=== PATIENT | male | born 1935 | race Caucasian/White ===

== ENCOUNTER 2018-10-22 19:13 | Inpatient (IN) | payer MEDICARE, OTHER ==
[2018-10-22 20:05] LABS: Hemoglobin 6.9 g/dL (14.0-18.0); Mean Corpuscular HGB CONC 32.5 g/dL (32.0-36.0); Mean Corpuscular Hemoglobin 27.6 pg (27.0-31.0); Mean Corpuscular Volume 85.2 fL (78.0-98.0); Mean Platelet Volume 7.2 fL (7.4-10.4); Platelet Count 539 thou/uL (130-400); Red Blood Cell (RBC) Count 2.51 mill/uL (4.70-6.10); White Blood Cell (WBC) Count 10.4 thou/uL (4.8-10.8)
[2018-10-22 20:08] LABS: INR-International Normal Ratio 1.2; PTT 28.9 SEC (22.9-36.1); Prothrombin Time 15.3 SEC (12.0-14.7)
[2018-10-22 20:17] LABS: #Basophils 0.1 thou/uL (0.0-0.2); #Eosinphils 0.1 thou/uL (0.0-0.7); #Lymphocytes 1.8 thou/uL (1.20-3.40); #Monocytes 0.7 thou/uL (0.11-0.59); #Neutrophils 7.7 thou/uL (1.40-6.50); %Basophils 0.6 % (0.0-1.0); %Eosinophils 0.8 % (0.0-10.0); %Lymphocytes 17.5 % (21.0-51.0); %Neutrophils 74.1 % (42.0-75.0); Platelet Morphology Comment Appears Increased
[2018-10-22 20:23] LABS: ALT (SGPT) 23 U/L (8-55); AST (SGOT) 19 U/L (5-34); Albumin 2.8 g/dL (3.4-4.8); Alkaline Phosphatase 97 U/L (40-150); Anion Gap 9 mmol/L (10-20); BUN (Urea Nitrogen) 26 mg/dL (8.4-25.7); Bilirubin, Total 0.2 mg/dL (0.2-1.2); Calc. Creatinine Clearance 0 mL/min (70-130); Calcium 7.7 mg/dL (7.8-10.44); Carbon Dioxide 25 mmol/L (23-31); Chloride 107 mmol/L (98-107); Estimated GFR-MDRD 63; Globulin 2.5 g/dL (2.4-3.5); Glucose 289 mg/dL (83-110); Potassium 4.1 mmol/L (3.5-5.1); Protein, Total 5.3 g/dL (5.8-8.1); Sodium 137 mmol/L (136-145)
[2018-10-22] MEDS ORDERED: Pantoprazole 40 MG VIAL ONE (20:31)
[2018-10-22] MEDS ORDERED: Pantoprazole 80 MG in Sodium Chloride 0.9% 100 ML IVP SCH (20:45)
[2018-10-22] MEDS ORDERED: cefTRIAXone\\ROCEPHIN 2 GM VIAL ONE (21:03)
[2018-10-23 00:17] VITALS: BMI 25.6
[2018-10-23] MEDS: Sodium Chloride 0.9% 1,000 ML IV SCH ×3 (00:52→20:58)
[2018-10-23 03:46] LABS: Hemoglobin 7.7 g/dL (14.0-18.0)
--- NOTE | 2018-10-23 05:14 | HP ---
DATE OF CONSULTATION: 10/22/2018 REASON FOR CONSULTATION: Melena, anemia. CONSULTING PHYSICIAN: Odell Lou MD HISTORY OF PRESENT ILLNESS: The patient is an 83-year-old male with past medical history of diabetes, coronary artery disease status post myocardial infarction and probable cardiac arrhythmia, status post event monitor placement, presenting with complaints of melena. Per patient, he was admitted to the [facility] approximately 1 week ago with complaints of melena/black colored stool that had been present since June of 2018, after undergoing the cholecystectomy. While in the [place], he was intervened upon with what sounds like an upper endoscopy with treatment of "a gastric ulcer." He was then subsequently monitored in the [facility] for approximately 24 to 48 hours and then discharged to home. He was in good state of health until today at approximately 2 o'clock this afternoon when he again had recurrence of these multiple black colored stools that were semi-solid to liquid in consistency. With the appearance of these black colored stools, it prompted him to seek healthcare assistance at the [facility] ER. While in the ER, he was noted to have a significant anemia when compared to baseline approximately with his most recent CBC seen 2 weeks ago with a hemoglobin of 11, now presenting with a hemoglobin of 6.9. He does endorse increased anorexia that has been present since June of 2018 with an approximate 40 pounds weight loss over the last 3 months as a result. Otherwise, he denies any nausea, vomiting, fevers, chills, hematochezia, hematemesis, dysphagia, odynophagia, or shortness of breath. Of note, the patient is a poor historian and cannot recall multiple pieces of information during this interview. REVIEW OF SYSTEMS: A 10-category review of systems was obtained with all responses negative except for the pertinent positives as listed in HPI. PAST MEDICAL HISTORY: As per HPI. PAST SURGICAL HISTORY: Tonsillectomy, cholecystectomy, appendectomy. FAMILY HISTORY: Denies any GI malignancies. SOCIAL HISTORY: Denies any tobacco, alcohol, or illicit drug use. OUTPATIENT MEDICATIONS: 1. Humulin insulin. 2. Ipratropium/albuterol sulfate. 3. Cefdinir. 4. Aspirin 81 mg daily. 5. Amiodarone 400 mg twice daily. ALLERGIES: NO KNOWN DRUG ALLERGIES. PHYSICAL EXAMINATION: VITAL SIGNS: Temperature unknown, pulse 101, blood pressure 95/47, respiratory rate 18, saturating 98% on room air. GENERAL: The patient is lying in bed, in no acute distress. Alert and oriented x4, albeit hard of hearing. NECK: Supple. No JVD. HEENT: No scleral icterus noted. Normocephalic, atraumatic. CARDIOVASCULAR: Tachycardic rate, but regular rhythm with no discernible murmurs, gallops, or rubs. RESPIRATORY: Some crackles were heard in the left upper lung bedolla that cleared with coughing. Otherwise, diminished air flow auscultated in all lung bedolla (lung sounds were difficult to be heard given the fact the patient was in a supine position for central line placement). ABDOMEN: Hyperactive bowel sounds. Soft, nondistended. Tenderness to palpation in the right upper quadrant and midepigastric regions. EXTREMITIES: No cyanosis, clubbing, or edema. LABORATORY DATA: CBC with a white blood cell count of 10.4, hemoglobin 6.9, hematocrit 21.4, platelets 539. INR 1.2. Chemistry with a sodium of 137, potassium 4.1, chloride 107, CO2 of 25, BUN 26, creatinine 1.12, glucose , AST 19, ALT 23, alkaline phosphatase 97, total bilirubin 0.2, albumin 2.8. IMAGING DATA: CT of the abdomen and pelvis was obtained on October 09, 2018, which showed small left pleural effusion and mild increased markings in the bilateral lower lung bases. Fatty change was noted throughout the liver with cholecystectomy changes also seen. A possible splenic infarct was also noted as well as scattered colonic diverticulosis without evidence of diverticulitis. ASSESSMENT AND PLAN: The patient is an 83-year-old male with past medical history of diabetes, coronary artery disease status post myocardial infarction and probable cardiac arrhythmia now on an event monitor, presenting with melena. Melena: The patient states that he was recently admitted to the [facility] in [place] within the last week for this similar complaint of melena. He was intervened upon with upper endoscopy and treatment of what appears to be a gastric ulcer. Post treatment, the patient was doing well until this afternoon when he again had increased melenic type bowel movements thus prompting him to seek healthcare assistance here at [facility]. While in the ED, he was noted to be hypotensive and tachycardic and has received approximately 250 mL of IV fluids resuscitation, but has not received any blood as of yet. He continues to be hypotensive indicating further resuscitation as needed. At this time, the differential could include esophagitis, peptic ulcer disease (most likely) gastritis, arteriovenous malformation, Dieulafoy lesion and/or gastrointestinal neoplasm (less likely). RECOMMENDATIONS: We would continue to trend H and H and transfuse as necessary to maintain an H and H of 7/21, although in this cardiac patient, the H and H of 8 and 24 may be more prudent. We would continue to monitor clinically for signs of active GI bleeding. Agree with placement of patient on a PPI drip in light of active GI bleeding. We would hold any anticoagulation for the time being. We would continue resuscitative efforts with IV fluid administration and blood infusion. Once that patient is adequately resuscitated, would then consider upper endoscopy for more definitive treatment of bleeding source. Please keep the patient n.p.o. with plans to proceed with EGD in the morning unless the patient continues to not respond to IV fluid/blood infusion. We will continue to follow. Please call with any questions. Job ID: [id number]
[2018-10-23] MEDS: Pantoprazole 80 MG, Admixture Fee 1 EACH in Sodium Chloride 0.9% 100 ML IVP SCH ×2 (07:04→19:10)
[2018-10-23] MEDS ORDERED: PHENYLEPHRINE-NS 100 MCG/ML 10 ML SYRINGE ONE ×2 (08:11→09:01)
[2018-10-23] MEDS ORDERED: Ondansetron PF 4 MG/2 ML Vial ONE (09:01)
[2018-10-23] MEDS ORDERED: Esmolol 100 MG/10 ML VIAL ONE (09:01)
[2018-10-23] MEDS ORDERED: PROPOFOL 200 MG/20 ML VIAL ONE (09:01)
[2018-10-23] MEDS ORDERED: EPINEPHrine 1 MG/10 ML Abboject SYRINGE ONE (09:01)
[2018-10-23] MEDS ORDERED: Lidocaine 1% PF 5 ML VIAL ONE (09:01)
[2018-10-23] MEDS ORDERED: ePHEDrine 50 MG/ML VIAL ONE (09:01)
[2018-10-23] MEDS ORDERED: Metoprolol Tartrate 5 MG/5 ML VIAL ONE (09:17)
[2018-10-23] MEDS ORDERED: Promethazine HCl 25 MG/ML VIAL IM PRN (09:26)
[2018-10-23] MEDS ORDERED: Ondansetron HCl/PF 4 MG/2 ML Vial IVP PRN (09:26)
[2018-10-23] MEDS ORDERED: Promethazine HCl 25 MG/ML VIAL SLOW IVP PRN (09:26)
[2018-10-23] MEDS ORDERED: Amiodarone 200 MG TAB PO SCH (10:45)
[2018-10-23] MEDS ORDERED: Dextrose 50% Abboject 50 ML SYRINGE SLOW IVP PRN (11:17)
[2018-10-23] MEDS ORDERED: Dextrose 5% in Water 1,000 ML IV PRN (11:17)
[2018-10-23] MEDS ORDERED: Digoxin 0.5 MG/2 ML AMP SLOW IVP SCH (12:00)
[2018-10-23] MEDS: Amiodarone 450 MG in Dextrose 5% in Water 250 ML IVPB SCH ×2 (12:14→20:58)
[2018-10-23 12:32] LABS: Hemoglobin 7.4 g/dL (14.0-18.0)
[2018-10-23] MEDS: HumaLOG 300 UNITS/3 ML VIAL SC PRN ×3 (12:32→20:59)
--- NOTE | 2018-10-23 12:49 | CON ---
DATE OF CONSULTATION: 10/23/2018 SERVICE: Pulmonary Medicine. REASON FOR CONSULT: CU patient. HISTORY OF PRESENT ILLNESS: The patient is an 83-year-old white male with past medical history significant for nothing. He is in his usual state of health when he started having melena. He presented to the emergency department. Ultimately, he was scoped overnight. Based on his recollection, an ulcer was identified. Overnight, his hemoglobins have stabilized a little bit. This morning, he went into atrial fibrillation with RVR. His blood pressures were preserved. Otherwise, he has no specific complaints of chest pain, fevers, chills, nausea, vomiting, or shortness of breath. He has been having weakness coming on for a couple of days. PAST MEDICAL HISTORY: 1. Type 2 diabetes mellitus. 2. Coronary artery disease. 3. Gastroesophageal reflux disease. 4. Hypertension. 5. Low vitamin D. PAST SURGICAL HISTORY: 1. Tonsillectomy. 2. Cholecystectomy. 3. Appendectomy. FAMILY HISTORY: Noncontributory. SOCIAL HISTORY: Negative for alcohol, tobacco, or illicit drug use. He has no exposure to chemicals, dust, asbestos, or tuberculosis. He is a [employer]. ALLERGIES: NO KNOWN DRUG ALLERGIES. MEDICATIONS: List of his inpatient medications was reviewed. No specific updates were made. REVIEW OF SYSTEMS: General; head, eyes, ears, nose, and throat; cardiovascular, respiratory, GI, , musculoskeletal, neurologic, and skin are negative, except as mentioned in the HPI. PHYSICAL EXAMINATION: VITAL SIGNS: Afebrile, pulse 117, blood pressure 105/57, respirations 32, saturation 93% on room air. HEENT: Normocephalic and atraumatic. Sclerae white. Conjunctivae pink. Oral mucosa is moist without lesions. LUNGS: Decent air entry. There is no prolonged expiratory phase. I do not appreciate any rhonchi or crackles. CARDIOVASCULAR/HEART: Tachycardic, irregular. ABDOMEN: Soft, nontender, nondistended. Bowel sounds are positive. MUSCULOSKELETAL: No cyanosis or clubbing. No pitting in the bilateral lower extremities. NEUROLOGIC: Grossly nonfocal. LABORATORY DATA: Hemoglobin 7.7, WBC 10.4, platelets 539,000. INR 1.2. Creatinine 1.12. Basic metabolic profile is otherwise unremarkable with a potassium of 4.1. Liver function studies were unremarkable. ASSESSMENT: 1. Acute blood loss anemia, stable. 2. Upper gastrointestinal bleed. 3. Peptic ulcer disease. 4. Atrial fibrillation with rapid ventricular response. DISCUSSION AND PLAN: We will continue to trend the hemoglobin and keep him above 7. I will check a magnesium with tomorrow morning's laboratories, and we will repeat electrolytes. I will give him a dose of digoxin, and we will initiate an amiodarone drip. Cardiology consultation will be placed as so far as the patient is aware, there is a new onset atrial fibrillation. He will remain in the IMCU for today. 70 minutes have been devoted to this patient in various activities. I personally reviewed all imaging studies and laboratory data noted within this document. For fifty percent of this time, I was interacting with the patient at the bedside or coordinating care with the care team. For the remainder of the time I was immediately available to the patient in the hospital unit. Job ID: [id number] MTDD
--- NOTE | 2018-10-23 13:00 | OP ---
DATE OF PROCEDURE: 10/23/2018 PROCEDURE PERFORMED: EGD with control of hemorrhage. INDICATION FOR PROCEDURE: Melena, probable upper GI bleed, per recent history of upper GI ulceration intervened on at the [facility] one week ago. DESCRIPTION OF PROCEDURE: After the risks and benefits of the procedure were explained to the patient including risks of bleeding, infection, perforation, reactions to anesthesia, aspiration and/or pain, informed consent was obtained. The patient was then taken to the endoscopy suite, where deep sedation was administered via propofol and anesthesia support. Once adequate sedation was achieved, the therapeutic gastroscope was introduced into the mouth with intubation of the esophagus, stomach, and the proximal small intestine with the findings listed below. The patient did exhibit increased heart rates during the procedure secondary to epinephrine injection, but otherwise tolerated the procedure well with no immediate perioperative complications. After the procedure, all equipment was removed from the patient, and he was taken to PACU in satisfactory condition. FINDINGS: Esophagus: Normal-appearing mucosa was seen in the proximal, mid, and distal esophagus. There was no evidence of erosions, ulcerations, mass, lesions, or active/recent bleeding. Stomach: A large amount of retained food was seen in the gastric cardia and proximal cardia, proximal fundus and pre-pyloric regions prevented visualization of the gastric mucosa in these regions. Underlying abnormalities cannot be ruled out at this time, in these areas of the stomach, otherwise of the mucosa visualized, there was no evidence of erosions, ulcerations, mass, lesions, or active/recent bleeding seen in the distal fundus, body, greater curvature, and incisura. Duodenum: A 5 to 6 mm clean based ulceration without high-risk stigmata of bleeding was seen in the distal portion of the duodenal bulb. However, just distal to this lesion was a smaller ulceration measuring approximately 3 to 4 mm in size that did exhibit a visible vessel that was actively spurting blood along the proximal end of the ulceration. Epinephrine injection with a concentration of 1:10,000 was then performed in a 4-quadrant fashion using approximately 7 mL to slow the bleeding enough to obtain adequate visualization of the visible vessel. Bipolar cautery was then employed with cauterization of the visible vessel and good hemostasis achieved. At the end of the procedure, there was no active/visible bleeding, otherwise the remainder of the second portion of the duodenum was normal without any other abnormalities. IMPRESSION: 1. A 3 to 4 mm ulceration seen in the duodenal sweep with a visible vessel that was actively spurting blood, now status post epinephrine injection and bipolar cautery with good hemostasis achieved. 2. A 5 to 6 mm clean based ulceration seen in the distal duodenal bulb without any high-risk stigmata of bleeding. 3. A large amount of retained food within the stomach precluding visualization of the gastric cardia, proximal fundus and pre-pyloric regions, abnormalities cannot be ruled out at this time in these regions. RECOMMENDATIONS: 1. We continue to trend H and H and transfuse as necessary to maintain an H and H of 02/12. 2. Continue to monitor clinically for signs of active gastrointestinal bleeding. 3. We will continue patient on a PPI drip for the next 24 hours, then consider transferring the patient to PPI 40 mg twice daily. 4. We will place the patient on a clear liquid diet for now. However, if the patient continues to exhibit decreasing H and H during this admission, I would strongly consider repeat upper endoscopy for further evaluation and treatment of the regions not visualized during examination today. 5. Would avoid any NSAIDs and/or anticoagulation for at least the next 48 to 72 hours. 6. The patient will need to be monitored in at least an intermediate care bed for at least the next 48 hours given the increased risk of rebleeding during this time. We will continue to follow. Please call with any questions. Job ID: [id number]
--- NOTE | 2018-10-23 14:38 | CON ---
DATE OF CONSULTATION: 10/23/2018 REASON FOR CONSULTATION: Atrial fibrillation with RVR. HISTORY OF PRESENT ILLNESS: Mr. Humphrey is an 83-year-old white gentleman, who comes to the hospital for melena. He was found to have GI bleed. His hemoglobin went from 11, which is baseline down to 6.9. He underwent endoscopy earlier today and was found to have a bleeding ulcer in his duodenum that was cauterized and injected with epinephrine. This was not clipped. Actively bleeding spurting blood at the time of evaluation. He came back, he is wide awake and he suddenly went into atrial fibrillation with RVR, so Cardiology consulted for this. He does have a history of paroxysmal atrial fibrillation. He follows up with [facility]. He is last seen here by Dr. Kim during an admission for what appears to be sepsis, at which time he went to atrial fibrillation as well. He apparently at that time was on warfarin for stroke prophylaxis. Looking at his medication list, he has been and what appears to be Plavix and aspirin. He has not had a stent as far as I can tell, and he is unable to tell me. He had an admission to the [place] just about a month ago for the same issue with melena. He had an endoscopy and apparently, he was treated for a gastric ulcer at that time, unclear as to the details of that admission. Currently, he is hard to give any history and he really does not know much about what has been going on in the recent past . PAST MEDICAL HISTORY: 1. Paroxysmal atrial fibrillation. 2. Gastric ulcers and duodenal ulcers with bleeding. 3. Type 2 diabetes. 4. Coronary artery disease. 5. GERD. 6. Hypertension. 7. Vitamin D deficiency. PAST SURGICAL HISTORY: 1. Tonsillectomy. 2. Cholecystectomy. 3. Appendectomy. 4. Esophagogastroduodenoscopy and colonoscopy today. SOCIAL HISTORY: No alcohol, tobacco, or drugs. FAMILY HISTORY: Noncontributory. OUTPATIENT MEDICATIONS: Per chart review: 1. Tylenol p.r.n. 2. Menthol. 3. Metoprolol succinate 100 mg a day. 4. Vitamin D3. 5. Pantoprazole 40 mg b.i.d. 6. Lisinopril 2.5 mg a day. 7. Colchicine. 8. Clopidogrel 75 mg a day. 9. Aspirin 81 a day. ALLERGIES: NO KNOWN DRUG ALLERGIES. REVIEW OF SYSTEMS: A 12-point review of systems was done and was found to be negative unless stated in the history of present illness. PHYSICAL EXAMINATION: VITAL SIGNS: Temperature 98.4, pulse between 90 to 131, respiratory rate 20, saturating 100% on 2 L, and blood pressure 163/85 down to 119/62. GENERAL: Awake, alert, and oriented to person only, minimally verbal, difficult to get any history from or converse with him. HEENT: Normocephalic and atraumatic. NECK: Supple. LUNGS: Clear. CARDIOVASCULAR: Heart rate in the 120s. ABDOMEN: Soft. Positive bowel sounds. EXTREMITIES: Trace edema. SKIN: Warm and dry. LABORATORY DATA: Laboratory work was reviewed. CBC; hemoglobin down to 6.9, up to 7.4, now. Coags were reviewed. Chemistries were reviewed. Albumin of 2.8, normal sodium and potassium. EKG was reviewed. Telemetry was reviewed. ASSESSMENT: 1. Atrial fibrillation with rapid ventricular response, likely one of his paroxysms of atrial fibrillation. He has a history of paroxysmal atrial fibrillation. I agree with amiodarone drip for now. 2. Upper gastrointestinal bleed. 3. History of coronary artery disease, unclear if he has had stents or not. PLAN: 1. Not a candidate for any anticoagulation for atrial fibrillation at this time, and he may benefit from Watchman versus LARIAT device in the future. Currently off any anticoagulants or any antiplatelets given his high risk for recurrence of bleed with his actively blood spurting artery that was seen on endoscopy today. 2. Continue amiodarone drip mostly for rate control, but I am sure he will convert pretty soon as he does have only paroxysmal atrial fibrillation. 3. We will try to get records from the [place]. 4. Echocardiogram to be done. 5. We will follow. Job ID: [id number]
[2018-10-23] MEDS: Metoprolol Tartrate 25 MG TAB PO SCH (20:59)
[2018-10-24 04:54] LABS: Anion Gap 11 mmol/L (10-20); BUN (Urea Nitrogen) 20 mg/dL (8.4-25.7); Calc. Creatinine Clearance 68 mL/min (70-130); Calcium 7.1 mg/dL (7.8-10.44); Carbon Dioxide 17 mmol/L (23-31); Chloride 113 mmol/L (98-107); Estimated GFR-MDRD 81; Glucose 165 mg/dL (83-110); Magnesium 1.3 mg/dL (1.6-2.6); Potassium 4.4 mmol/L (3.5-5.1); Sodium 137 mmol/L (136-145)
[2018-10-24] MEDS: Pantoprazole 80 MG, Admixture Fee 1 EACH in Sodium Chloride 0.9% 100 ML IVP SCH ×2 (05:35→16:24)
[2018-10-24] MEDS: Sodium Chloride 0.9% 1,000 ML IV SCH ×2 (05:35→16:26)
[2018-10-24] MEDS: HumaLOG 300 UNITS/3 ML VIAL SC PRN (05:48)
[2018-10-24 06:03] LABS: Hemoglobin 5.8 g/dL (14.0-18.0); Mean Corpuscular HGB CONC 34.7 g/dL (32.0-36.0); Mean Corpuscular Hemoglobin 29.7 pg (27.0-31.0); Mean Corpuscular Volume 85.6 fL (78.0-98.0); Mean Platelet Volume 7.6 fL (7.4-10.4); Platelet Count 272 thou/uL (130-400); RBC Distribution Width 15.3 % (11.5-14.5); Red Blood Cell (RBC) Count 1.96 mill/uL (4.70-6.10); White Blood Cell (WBC) Count 20.1 thou/uL (4.8-10.8)
[2018-10-24 06:45] LABS: Band 3 % (5-11); Eosinophils 2 % (0-10); Lymphocytes 13 % (21-51); MDiff Complete? YES; Monocytes 3 % (0-10); Neutrophil 79 % (42-75); Polychromasia SLIGHT = 2-3 cells (100X) (0-2/hpf)
[2018-10-24] MEDS ORDERED: Digoxin 0.5 MG/2 ML AMP SLOW IVP SCH (09:00)
[2018-10-24] MEDS: Metoprolol Tartrate 25 MG TAB PO SCH ×2 (09:18→21:02)
--- NOTE | 2018-10-24 13:35 | RAD ---
PORTABLE CHEST 1 VIEW: Date: 10/24/18 Time: 1253 hours HISTORY: Asthma. CHF. FINDINGS/IMPRESSION: Comparison made with exam of 10/09/18. Borderline cardiomegaly is again seen. There is pulmonary vascular congestion with bibasilar infiltra guero. No pneumothoraces or large effusions are seen. There are degenerative changes in the right shoul ibeth joint. POS: TPC
--- NOTE | 2018-10-24 13:37 | PRG ---
DATE OF SERVICE: 10/24/2018 REASON FOR CONSULTATION: Melena, duodenal ulceration. SUBJECTIVE: Per nursing staff, the patient had 2 melenic/reddish-colored stools overnight with a slight decrease in his blood pressure during that time, but stabilized with no further bowel movements after that. This morning, he did have another episode of melenic/reddish-colored bowel movements, but otherwise has been doing well. Currently, he denies any nausea, vomiting, fevers, chills, abdominal pain, or hematemesis. OBJECTIVE: VITAL SIGNS: Temperature 98.5, pulse 100, blood pressure 123/58, respiratory rate 22, and saturating 96% on room air. GENERAL: The patient was lying in bed, in no acute distress. Alert and oriented x4. CARDIOVASCULAR: Tachycardic rate, but regular rhythm. RESPIRATORY: Clear to auscultation bilaterally. ABDOMEN: Normoactive bowel sounds. Soft, nontender, and nondistended. EXTREMITIES: No cyanosis, clubbing, or edema. LABORATORY DATA: CBC with a white blood cell count of 20.1, hemoglobin 5.8, hematocrit 16.8, and platelets 272. Chemistry with a sodium of 137, potassium 4.4, chloride 113, CO2 of 17, BUN 20, creatinine 0.9, and glucose 165. IMAGING DATA: The patient underwent an EGD on October 23, 2018, which showed a small ulceration at the duodenal sweep as well as the presence of a visible vessel that was actively spurting arterial blood. This was intervened upon with epinephrine and bipolar cauterization and after multiple attempts, good hemostasis was able to be achieved. ASSESSMENT AND PLAN: The patient is an 83-year-old male with past medical history of diabetes, coronary artery disease, status post myocardial infarction and cardiac arrhythmia, now on amiodarone drip, presenting with melena. Melena: The patient was recently admitted to the [facility] in [place] with complaints of melena and was ultimately intervened upon with upper endoscopy and treatment of what seems to have been a gastric ulceration. In the post treatment period, the patient was doing well until the day prior to admission when he began to experience increased melenic-type bowel movements that was associated with increased weakness that prompted him to seek healthcare assistance. While in the ED, he was noted to be hypotensive and tachycardic with a decreased H and H consistent with an active gastrointestinal bleed. He subsequently underwent esophagogastroduodenoscopy on October 23, 2018, which showed an actively bleeding duodenal ulceration with a visible vessel that was successfully intervened upon with epinephrine and bipolar cauterization. However, he continues to have melenic stools overnight and did have a drop in his H and H concerning for continued bleeding despite intervention. RECOMMENDATIONS: 1. We would continue to trend H and H and transfuse as necessary to maintain an H and H of 7/21. 2. We will continue to monitor clinically for signs of active GI bleeding. 3. Make the patient n.p.o. with infusion of PRBCs (already being done). 4. If the patient continues to have melena or decreasing H and H, we then repeat the upper endoscopy for further evaluation. Please call with any questions. Job ID: [id number]
[2018-10-24 14:12] LABS: Hemoglobin 8.3 g/dL (14.0-18.0); Platelet Count 262 thou/uL (130-400)
[2018-10-24] MEDS: Amiodarone 450 MG in Dextrose 5% in Water 250 ML IVPB SCH (14:31)
--- NOTE | 2018-10-24 16:20 | PRG ---
DATE OF SERVICE: 10/24/2018 SUBJECTIVE: Mr. Humphrey'fantasma events been reviewed. He is in no distress. He denies passing any blood. OBJECTIVE: VITAL SIGNS: On exam, he is afebrile, heart rate is 102, blood pressure 128/64, and respiratory rates in the 20s. CHEST: On chest exam, he has wheezing. HEART: Regular rhythm. ABDOMEN: Soft and nontender. EXTREMITIES: Without edema. LABORATORY DATA: Chest x-ray ordered after I evaluated him, it is suggestive of pulmonary edema. IMPRESSION AND PLAN: 1. Atrial fibrillation. 2. Cardiogenic pulmonary edema. 3. Gastrointestinal blood loss. 4. History of coronary artery disease. An echocardiogram was ordered yesterday, had not been reported yet. He may benefit from nebulizer treatments. He denies having chronic obstructive pulmonary disease or asthma. I suspect this is predominantly cardiac asthma. Job ID: [id number]
[2018-10-25] MEDS: Sodium Chloride 0.9% 1,000 ML IV SCH ×2 (01:53→14:03)
[2018-10-25 04:01] LABS: #Basophils 0.1 thou/uL (0.0-0.2); #Eosinphils 0.4 thou/uL (0.0-0.7); #Lymphocytes 1.9 thou/uL (1.20-3.40); #Neutrophils 12.1 thou/uL (1.40-6.50); %Basophils 0.4 % (0.0-1.0); %Eosinophils 2.4 % (0.0-10.0); %Lymphocytes 12.5 % (21.0-51.0); %Monocytes 6.5 % (0.0-10.0); %Neutrophils 78.3 % (42.0-75.0); Hemoglobin 8.2 g/dL (14.0-18.0); Mean Corpuscular HGB CONC 34.2 g/dL (32.0-36.0); Mean Corpuscular Hemoglobin 30.3 pg (27.0-31.0); Mean Corpuscular Volume 88.5 fL (78.0-98.0); Mean Platelet Volume 7.2 fL (7.4-10.4); Platelet Count 272 thou/uL (130-400); RBC Distribution Width 15.1 % (11.5-14.5); Red Blood Cell (RBC) Count 2.71 mill/uL (4.70-6.10); White Blood Cell (WBC) Count 15.4 thou/uL (4.8-10.8)
[2018-10-25 04:10] LABS: Anion Gap 11 mmol/L (10-20); BUN (Urea Nitrogen) 12 mg/dL (8.4-25.7); Calc. Creatinine Clearance 70 mL/min (70-130); Calcium 7.7 mg/dL (7.8-10.44); Carbon Dioxide 21 mmol/L (23-31); Cardiac Risk 3.2 (Less than 4.5); Chloride 110 mmol/L (98-107); Cholesterol 87 mg/dl (< 200 Desired); Estimated GFR-MDRD 81; Glucose 187 mg/dL (83-110); HDL Cholesterol 27 mg/dL (>60 Neg Risk); LDL Cholesterol, Calculated 38 mg/dL; Magnesium 1.2 mg/dL (1.6-2.6); Potassium 3.8 mmol/L (3.5-5.1); Sodium 138 mmol/L (136-145); Triglycerides 111 mg/dL (Less than 150)
[2018-10-25 05:22] LABS: Digoxin 0.42 ng/mL (0.8-2.0)
[2018-10-25] MEDS: Pantoprazole 80 MG, Admixture Fee 1 EACH in Sodium Chloride 0.9% 100 ML IVP SCH ×2 (05:25→14:03)
[2018-10-25] MEDS: Amiodarone 450 MG in Dextrose 5% in Water 250 ML IVPB SCH (06:28)
[2018-10-25] MEDS: Amiodarone 200 MG TAB PO SCH ×2 (09:26→20:37)
[2018-10-25] MEDS: Metoprolol Tartrate 25 MG TAB PO SCH ×2 (09:27→20:38)
[2018-10-25 15:33] LABS: Hemoglobin 8.2 g/dL (14.0-18.0)
--- NOTE | 2018-10-25 16:40 | PRG ---
DATE OF SERVICE: 10/25/2018 SUBJECTIVE: Mr. Humphrey is clinically unchanged. OBJECTIVE: VITAL SIGNS: He is afebrile, heart rate 90, blood pressure 139/71, and respiratory rate 20. GENERAL: He was more short of breath this morning, but once he received the nebulized treatment, he felt much better. LUNGS: Distant, clear. HEART: Regular rhythm. ABDOMEN: Soft. LABORATORY DATA: White count 15.4, hemoglobin 8.2, and platelets 372. Sodium 138, potassium 3.8, chloride 110, bicarb 21, BUN 12, creatinine 0.9, and glucose 187. IMPRESSION: 1. Chronic obstructive pulmonary disease ?/cardiac asthma. 2. Gastrointestinal blood loss. 3. Congestive heart failure clinically and radiographically on this admission. 4. Diabetes. 5. Atrial fibrillation. 6. Deconditioning. 7. Status post endoscopy this admission showing ulcers in duodenal sweep and ulcer in the distal duodenal bulb and a large amount of retained fluid in the stomach. With his diabetes, I would wonder about gastroparesis. In any event, he appears to be clinically stable at this point. He is extremely weak. Job ID: [id number]
[2018-10-25] MEDS: HumaLOG 300 UNITS/3 ML VIAL SC PRN (17:51)
--- NOTE | 2018-10-25 18:41 | PRG ---
DATE OF SERVICE: 10/25/2018 REASON FOR CONSULTATION: Melena, duodenal ulceration. SUBJECTIVE: Today, the patient had approximately 2 bowel movements, that were considered either bright red blood per rectum versus slightly darker in coloration, concerning for possible recurrence of GI bleeding. Repeat H and H at that time was exactly the same as it was 12 hours prior. Currently, the patient is doing well with no apparent complaints or problems. Currently, he denies any nausea, vomiting, fevers, chills, abdominal pain or hematemesis. OBJECTIVE: VITAL SIGNS: Temperature 98.8, pulse 98, blood pressure 132/76, respiratory rate 26, and saturating 98% on room air. GENERAL: The patient was lying in bed, in no acute distress. Alert and oriented x4. CARDIOVASCULAR: Tachycardic rate, but regular rhythm. RESPIRATORY: Clear to auscultation bilaterally. ABDOMEN: Normoactive bowel sounds. Soft, nontender, and nondistended. EXTREMITIES: No cyanosis, clubbing or edema. LABORATORY DATA: CBC with a white blood cell count of 15.4, hemoglobin 8.2, hematocrit 24, and platelets 272. Chemistry with a sodium of 138, potassium 3.8, chloride 110, CO2 of 21, BUN 12, creatinine 0.9, and glucose 187. IMAGING DATA: No current GI imaging is available for review. ASSESSMENT AND PLAN: The patient is an 83-year-old male with past medical history of diabetes, coronary artery disease, status post myocardial infarction, and cardiac arrhythmia, now on amiodarone drip, presenting with melena. Melena: The patient was recently admitted to the [facility] in [place] with complaints of melena and ultimately intervened upon with upper endoscopy and treatment of what sounds like a gastric ulceration. He was ultimately discharged to home, and approximately 3 to 4 days after he was discharged, he began having increased melenic-type bowel movements concerning for upper GI bleed. On admission to the ER here at [facility], he was noted to be hypotensive and tachycardic with a decreased H and H consistent with an active GI bleed. He subsequently underwent an EGD on October 23, 2018, which showed an actively bleeding duodenal ulceration with a visible vessel that was successfully intervened upon with epinephrine and bipolar cauterization. However, since intervention, he has had intermittent episodes of hematochezia versus darker-colored stools concerning for a repeat or recurrence of his upper GI bleed, although his H and H has remained stable over the last 12 to 24 hours. RECOMMENDATIONS: 1. We would continue to trend H and H and transfuse as necessary to maintain an H and H of 02/12. 2. Continue to monitor clinically for signs of active GI bleeding. 3. Can continue the patient on a clear liquid diet. I am not ready to advance his diet given the repeat episodes of these melena and need for possible urgent intervention. 4. If the patient continues to have melena or decreasing H and H, then I would recommend a repeat upper endoscopy for further evaluation. We will continue to follow. Please call with any questions. Job ID: [id number]
--- NOTE | 2018-10-25 21:03 | EKG ---
Test Reason : Blood Pressure : / mmHG Vent. Rate : 104 BPM Atrial Rate : 104 BPM P-R Int : 182 ms QRS Dur : 138 ms QT Int : 388 ms P-R-T Axes : 068 033 090 degrees QTc Int : 510 ms Sinus tachycardia with occasional Premature ventricular complexes Left bundle branch block Abnormal ECG When compared with ECG of 22-JUL-2016 11:37, Premature ventricular complexes are now Present Premature atrial complexes are no longer Present Confirmed by FRANK MENDEZ, STana ([id number]) on 10/25/2018 9:03:15 PM Referred By: RICHARD Confirmed By:DR. Favio MARIE MD
[2018-10-26] MEDS: Sodium Chloride 0.9% 1,000 ML IV SCH ×2 (01:08→15:26)
[2018-10-26] MEDS: Pantoprazole 80 MG, Admixture Fee 1 EACH in Sodium Chloride 0.9% 100 ML IVP SCH ×3 (01:08→21:06)
[2018-10-26 04:47] LABS: #Basophils 0.1 thou/uL (0.0-0.2); #Eosinphils 0.3 thou/uL (0.0-0.7); #Lymphocytes 2.1 thou/uL (1.20-3.40); #Neutrophils 7.9 thou/uL (1.40-6.50); %Basophils 0.7 % (0.0-1.0); %Eosinophils 2.5 % (0.0-10.0); %Lymphocytes 18.4 % (21.0-51.0); %Monocytes 8.6 % (0.0-10.0); %Neutrophils 69.8 % (42.0-75.0); Hemoglobin 8.7 g/dL (14.0-18.0); Mean Corpuscular HGB CONC 34.2 g/dL (32.0-36.0); Mean Corpuscular Hemoglobin 30.8 pg (27.0-31.0); Mean Corpuscular Volume 90.3 fL (78.0-98.0); Mean Platelet Volume 7.5 fL (7.4-10.4); Platelet Count 307 thou/uL (130-400); Red Blood Cell (RBC) Count 2.83 mill/uL (4.70-6.10); White Blood Cell (WBC) Count 11.4 thou/uL (4.8-10.8)
[2018-10-26 05:06] LABS: Anion Gap 10 mmol/L (10-20); BUN (Urea Nitrogen) 9 mg/dL (8.4-25.7); Calc. Creatinine Clearance 71 mL/min (70-130); Carbon Dioxide 23 mmol/L (23-31); Chloride 109 mmol/L (98-107); Estimated GFR-MDRD 83; Glucose 165 mg/dL (83-110); Magnesium 1.6 mg/dL (1.6-2.6); Potassium 3.7 mmol/L (3.5-5.1); Sodium 138 mmol/L (136-145)
[2018-10-26] MEDS: HumaLOG 300 UNITS/3 ML VIAL SC PRN ×2 (06:01→19:02)
[2018-10-26] MEDS: Amiodarone 200 MG TAB PO SCH ×2 (09:34→21:06)
--- NOTE | 2018-10-26 19:24 | PRG ---
DATE OF SERVICE: 10/26/2018 REASON FOR CONSULTATION: Melena, duodenal ulceration. SUBJECTIVE: The patient states that he did not have a bowel movement today consistent with further active GI bleeding. Currently, he is lying in bed with no acute events or problems overnight. He currently denies any nausea, vomiting, fevers, chills, abdominal pain, or hematemesis or melena. OBJECTIVE: VITAL SIGNS: Temperature 98.3, pulse 94, blood pressure 150/82, respiratory rate 18, saturating 97% on room air. GENERAL: The patient is lying in bed, in no acute distress. Alert and oriented x3. CARDIOVASCULAR: Regular rate and rhythm. RESPIRATORY: Clear to auscultation bilaterally. ABDOMEN: Normoactive bowel sounds. Soft, nontender, nondistended. EXTREMITIES: No cyanosis, clubbing, or edema. LABORATORY DATA: CBC showed a white blood cell count of 11.4, hemoglobin 8.7, hematocrit 25.5, platelets 307. Chemistry with a sodium of 138, potassium 3.7, chloride 109, CO2 of 23, BUN 9, creatinine 0.88, glucose 165. IMAGING DATA: No current GI imaging is available for review. ASSESSMENT AND PLAN: The patient is an 83-year-old male with past medical history of diabetes, coronary artery disease status post myocardial infarction and cardiac arrhythmia, now placed on amiodarone, presenting with melena secondary to an actively bleeding duodenal ulcer. Melena/duodenal ulcer. Per patient, he was recently admitted to the [facility] in [place] with complaints of melena and ultimately intervened upon with upper endoscopy and treatment of what sounded like a gastric ulceration. He was ultimately discharged to home. Approximately 3 to 4 days after he was discharged, began having increased melenic type bowel movements, again concerning for an upper GI bleed. On admission, he was noted to have a significantly decreased H and H and was also hypotensive and tachycardic concerning for a briskly bleeding GI bleed. He subsequently underwent EGD on 10/23/2018, which showed an actively bleeding duodenal ulceration with a visible vessel that was successfully intervened upon with epinephrine and bipolar cautery. Since intervention, he had been having intermittent episodes of hematochezia/melenic type stools concerning for recurrence of his upper GI bleed. However, over the last 24 to 48 hours, his H and H has remained fairly stable and he has had no further episodes of melenic type stools lending further credence towards the notion that the GI bleeding has stopped. RECOMMENDATIONS: 1. We will continue to trend H and H and transfuse as necessary to maintain an H and H of 02/12. 2. Continue to monitor clinically for signs of active GI bleeding. 3. I would advance the diet for this particular patient given the fact that he has not had any more melena within the last 24 hours and his H and H is stable. 4. We will continue PPI 40 mg b.i.d. 5. If the patient continues to have melena or decreasing H and H, then I would repeat an upper endoscopy for further evaluation. If the patient's H and H are normal tomorrow and if cleared from a cardiology standpoint, he could be ultimately discharged to home with followup at the [facility]. We will continue to follow, please call with any questions. Job ID: [id number]
--- NOTE | 2018-10-26 19:50 | PRG ---
DATE OF SERVICE: 10/26/2018 SUBJECTIVE: Yobany Humphrey had no complaints today. OBJECTIVE: VITAL SIGNS: He is afebrile, heart rate is 94, respiratory rate is 18, oximetry is 97% on room air, blood pressure 150/82. LUNGS: Clear. HEART: Irregular rhythm. ABDOMEN: Soft. EXTREMITIES: Without edema. LABORATORY DATA: White count 11.4, hemoglobin 8.7, platelets 307,000. Sodium 138, potassium 3.7, chloride 109, bicarb 23, BUN 9, and creatinine 0.88. IMPRESSION: 1. Cardiac asthma versus some component of chronic obstructive pulmonary disease. 2. Gastrointestinal blood loss. 3. Congestive heart failure clinically and radiographically. 4. Diabetes. 5. Atrial fibrillation. 6. Deconditioning. 7. Ulcer disease by endoscopy this admission, does not appear to be acutely bleeding. We will continue to follow. Job ID: [id number]
[2018-10-27] MEDS: Sodium Chloride 0.9% 1,000 ML IV SCH (00:50)
[2018-10-27] MEDS: Pantoprazole 80 MG, Admixture Fee 1 EACH in Sodium Chloride 0.9% 100 ML IVP SCH (06:45)
[2018-10-27 07:02] LABS: #Basophils 0.1 thou/uL (0.0-0.2); #Eosinphils 0.2 thou/uL (0.0-0.7); #Lymphocytes 1.7 thou/uL (1.20-3.40); #Monocytes 0.8 thou/uL (0.11-0.59); #Neutrophils 6.8 thou/uL (1.40-6.50); %Basophils 0.9 % (0.0-1.0); %Eosinophils 1.7 % (0.0-10.0); %Lymphocytes 17.6 % (21.0-51.0); %Monocytes 8.3 % (0.0-10.0); %Neutrophils 71.6 % (42.0-75.0); Hemoglobin 8.8 g/dL (14.0-18.0); Mean Corpuscular HGB CONC 32.9 g/dL (32.0-36.0); Mean Corpuscular Hemoglobin 31.3 pg (27.0-31.0); Mean Corpuscular Volume 95.2 fL (78.0-98.0); Mean Platelet Volume 7.6 fL (7.4-10.4); Platelet Count 317 thou/uL (130-400); RBC Distribution Width 17.9 % (11.5-14.5); Red Blood Cell (RBC) Count 2.83 mill/uL (4.70-6.10); White Blood Cell (WBC) Count 9.5 thou/uL (4.8-10.8)
[2018-10-27 07:20] LABS: Anion Gap 14 mmol/L (10-20); BUN (Urea Nitrogen) 12 mg/dL (8.4-25.7); Calc. Creatinine Clearance 75 mL/min (70-130); Carbon Dioxide 19 mmol/L (23-31); Chloride 109 mmol/L (98-107); Estimated GFR-MDRD 86; Glucose 149 mg/dL (83-110); Magnesium 1.6 mg/dL (1.6-2.6); Potassium 3.8 mmol/L (3.5-5.1); Sodium 138 mmol/L (136-145)
[2018-10-27] MEDS ORDERED: Lisinopril 2.5 MG TAB PO SCH (09:00)
--- NOTE | 2018-10-27 10:00 | PRG ---
DATE OF SERVICE: 10/27/2018 SUBJECTIVE: Mr. Humphrey is afebrile. OBJECTIVE: VITAL SIGNS: Heart rate 92, respiratory rate 18, oximetry is 99 on room air, and blood pressure 158/86. LUNGS: Clear. HEART: Regular rhythm. ABDOMEN: Soft. LABORATORY DATA: White count 9.5, hemoglobin 8.8, and platelets 317. Sodium 138, potassium 3.8, chloride 109, bicarb 19, BUN 12, creatinine 0.85, and anion gap is 10. IMPRESSION AND PLAN: 1. Cardiac asthma versus chronic obstructive pulmonary disease, clinically stable. 2. Gastrointestinal blood loss, hemoglobin is stable. 3. Congestive heart failure. 4. Diabetes. 5. Atrial fibrillation. 6. Deconditioning. 7. Ulcer disease without active bleeding at this time. We will continue to follow. Job ID: [id number]
[2018-10-27] MEDS: Amiodarone 200 MG TAB PO SCH (10:19)
[2018-10-27 18:42] VITALS: BP 142/82; TEMP 96.8
== END 2018-10-27 15:20 | DRG 378 ==
LOC: ERS 19:13 → IMCU/EMU 20:23 → 2NO 10-26 07:54
PROVIDERS: ADMIT Internal Medicine; ATTEND Internal Medicine
PROC: 0W3P8ZZ Control Bleeding in Gastrointestinal Tract, Via Natural or Artificial Opening Endoscopic (ICD-10-PCS; principal; 2018-10-23)
DX: K26.4 Chronic or unspecified duodenal ulcer with hemorrhage (principal); D62 Acute posthemorrhagic anemia; E11.9 Type 2 diabetes mellitus without complications; E78.5 Hyperlipidemia, unspecified; M54.5 Low back pain; I25.10 Atherosclerotic heart disease of native coronary artery without angina pectoris; R63.0 Anorexia; K21.9 Gastro-esophageal reflux disease without esophagitis; I48.0 Paroxysmal atrial fibrillation; E55.9 Vitamin D deficiency, unspecified; I50.9 Heart failure, unspecified; I11.0 Hypertensive heart disease with heart failure; Z68.26 Body mass index [BMI] 26.0-26.9, adult; I25.2 Old myocardial infarction; J44.9 Chronic obstructive pulmonary disease, unspecified; Z90.49 Acquired absence of other specified parts of digestive tract; Z79.4 Long term (current) use of insulin; Z79.82 Long term (current) use of aspirin; Z79.899 Other long term (current) drug therapy; Z79.02 Long term (current) use of antithrombotics/antiplatelets
CPT/HCPCS: 36415; 36416; 36430; 36556; 71045; 80048; 80053; 80061; 80162; 82274; 83735; 85025; 85610; 85730; 86850; 86900; 86901; 93005; 93010; 94640; 96361; 96365; 96366; 96367; 96374; C9113; J0171; J0696; J1160; J2001; J2405; J2704; J3490; J7050; J7070; J7620; P9016

== ENCOUNTER 2019-01-22 09:57 | Emergency (ER) | payer MEDICARE, OTHER ==
[2019-01-22 12:05] LABS: CKMB 2.6 ng/mL (0-6.6)
== END 2019-01-22 15:25 | disposition short-term general hospital (02) ==
LOC: ERS 09:57
DX: I11.0 Hypertensive heart disease with heart failure (principal); I50.9 Heart failure, unspecified; R79.89 Other specified abnormal findings of blood chemistry
CPT/HCPCS: 36415; 82553; 93005

== ENCOUNTER 2019-06-27 10:16 | Emergency (ER) | payer OTHER ==
[2019-06-27 10:49] LABS: #Basophils 0.1 thou/uL (0.0-0.2); #Eosinphils 0.2 thou/uL (0.0-0.7); #Lymphocytes 2.1 thou/uL (1.20-3.40); #Monocytes 0.7 thou/uL (0.11-0.59); %Basophils 0.8 % (0.0-1.0); %Eosinophils 2.4 % (0.0-10.0); %Lymphocytes 25.9 % (21.0-51.0); %Monocytes 8.1 % (0.0-10.0); %Neutrophils 62.8 % (42.0-75.0); Hemoglobin 13.2 g/dL (14.0-18.0); Mean Corpuscular Hemoglobin 29.4 pg (27.0-31.0); Mean Platelet Volume 7.9 fL (7.4-10.4); Platelet Count 476 thou/uL (130-400); RBC Distribution Width 13.5 % (11.5-14.5); Red Blood Cell (RBC) Count 4.49 mill/uL (4.70-6.10)
--- NOTE | 2019-06-27 10:57 | RAD ---
EXAM: Single view of the chest HISTORY: Chest pain COMPARISON: 01/22/2019 FINDINGS: Single view of the chest shows an enlarged but stable cardiomediastinal silhouette. Increa sed interstitial markings are present. There is no evidence of consolidation, mass, or pleural effusion. The bones are unremarkable. IMPRESSION: No evidence of acute cardiopulmonary disease
[2019-06-27 11:03] LABS: INR-International Normal Ratio 1.4; PTT 39.1 SEC (22.9-36.1); Prothrombin Time 17.4 SEC (12.0-14.7)
[2019-06-27 11:19] LABS: ALT (SGPT) 13 U/L (8-55); AST (SGOT) 21 U/L (5-34); Albumin 3.8 g/dL (3.4-4.8); Alkaline Phosphatase 136 U/L (40-110); Anion Gap 16 mmol/L (10-20); BUN (Urea Nitrogen) 15 mg/dL (8.4-25.7); Bilirubin, Total 0.6 mg/dL (0.2-1.2); Calc. Creatinine Clearance 0 mL/min (70-130); Calcium 9.3 mg/dL (7.8-10.44); Carbon Dioxide 25 mmol/L (23-31); Chloride 103 mmol/L (98-107); Estimated GFR-MDRD 48; Globulin 4.1 g/dL (2.4-3.5); Glucose 127 mg/dL (83-110); Potassium 4.4 mmol/L (3.5-5.1); Protein, Total 7.9 g/dL (5.8-8.1); Sodium 140 mmol/L (136-145)
[2019-06-27 11:33] LABS: CKMB 1.5 ng/mL (0-6.6)
== END 2019-06-27 16:03 ==
LOC: ERS 10:16
DX: I20.0 Unstable angina (principal); I11.0 Hypertensive heart disease with heart failure; D64.9 Anemia, unspecified; I25.2 Old myocardial infarction; Z86.73 Personal history of transient ischemic attack (TIA), and cerebral infarction without residual deficits
CPT/HCPCS: 71045; 80053; 82553; 83880; 84484; 85025; 85610; 85730; 93005